=== PATIENT | female | born 1995 | race Caucasian/White ===

== ENCOUNTER 2020-11-15 21:18 | Observation (INO) | payer OTHER ==
[2020-11-15] MEDS ORDERED: Lactated Ringers 1,000 ML IV ONE (22:01)
[2020-11-15] MEDS: Zofran 4 MG/2 ML VIAL IV PRN (22:17)
[2020-11-15] MEDS: MORPHINE SULFATE 4 MG INJ IV PRN (22:20)
[2020-11-15 22:50] LABS: Amphetamine,Urine NEGATIVE (NEGATIVE); Barbiturate,Urine NEGATIVE (NEGATIVE); Benzodiazepine,Urine NEGATIVE (NEGATIVE); Cocaine,Urine NEGATIVE (NEGATIVE); Methadone,Urine NEGATIVE (NEGATIVE); Opiate,Urine NEGATIVE (NEGATIVE); PCP,Urine NEGATIVE (NEGATIVE); THC,Urine NEGATIVE (NEGATIVE)
[2020-11-15 23:24] LABS: Appearance SLIGHTLY CLOUDY (CLEAR); Bilirubin NEGATIVE (NEGATIVE); Blood NEGATIVE Ery/ul (0-5); Epithelial Cells RARE /HPF (FEW); Glucose NEGATIVE (NEGATIVE); Ketones MODERATE (NEGATIVE); Leukocyte Esterase TRACE (NEGATIVE); Mucus SLIGHT /HPF (NEGATIVE); Nitrite NEGATIVE (NEGATIVE); Protein,Urine Dip 30 (Negative); Specific Gravity 1.023 (1.005-1.025); Urobilinogen NEGATIVE mg/dL (0-1)
[2020-11-15] MEDS: Lactated Ringers 1,000 ML IV SCH (23:43)
[2020-11-15] MEDS ORDERED: HYDROCODONE-ACETAMIN 10-325 MG PO PRN (23:46)
[2020-11-16] MEDS: MORPHINE SULFATE 4 MG INJ IV PRN ×2 (02:58→06:44)
[2020-11-16] MEDS: Lactated Ringers 1,000 ML IV SCH ×2 (03:06→10:45)
[2020-11-16 04:28] VITALS: O2SAT 96
[2020-11-16] MEDS: Zofran 4 MG/2 ML VIAL IV PRN (06:51)
[2020-11-16] MEDS ORDERED: MORPHINE SULFATE 4 MG INJ IV ONE ×2 (07:10→09:25)
[2020-11-16 07:46] LABS: Hematocrit 30.9 % (35-47); Hemoglobin 9.7 gm/dl (12.0-16.0); Mean Corpuscular Hemoglobin 27.3 pg (26-32); Mean Corpuscular Hgb Concent. 31.4 g/dl (32-36); Mean Platelet Volume 10.1 fl (7.5-11.0); Platelet Count 305 K/mm3 (150-450); Red Blood Count 3.55 M/mm3 (4.1-5.4); Red Cell Distribution Width 12.8 % (11.5-14.0); White Blood Count 14.4 K/mm3 (4.0-10.5)
[2020-11-16 07:51] LABS: ALBUMIN 3.3 g/dL (3.5-5.0); ALKALINE PHOSPHATASE 179 U/L (38-126); ANION GAP 10.1 MEQ/L (5-15); BLOOD UREA NITROGEN 5 mg/dL (7-17); CHLORIDE 105 mmol/L (98-107); Calcium 9.1 mg/dL (8.4-10.2); Carbon Dioxide 24 mmol/L (22-30); Creatinine 1 0.83 mg/dL (0.52-1.04); EST GLOMERULAR FILTRATION RATE > 60.0 ML/MIN; Glucose 95 mg/dL (74-106); Potassium 4.5 mmol/L (3.5-5.1); SGOT/AST 25 U/L (14-36); SGPT/ALT 11 U/L (0-35); SODIUM 135 mmol/L (137-145); Total Protein 6.2 g/dL (6.3-8.2)
--- NOTE | 2020-11-16 08:36 | XRAY ---
Indication: Right sided pain. 32 weeks . History stones. Two-dimensional renal sonogram performed. Comparison: None Both kidneys normal in reniform shape with normal color perfusion. Right kidney measures 10.7 x 6.0 x 6.1 cm and the left measures 8.4 x 5.2 x 4.7 cm. Right kidney demonstrates mild pelvocaliectasis presumed related to . No solid/cystic renal mass or perinephric fluid. Images of the urinary bladder grossly unremarkable with normal bilateral ureteral jets. Impression: Mild right pelvocaliectasis presumed related to . Remaining renal sonogram negative.
--- NOTE | 2020-11-16 09:05 | XRAY ---
Indication: Right back pain. Two-dimensional OB ultrasound performed. Comparison: None There is a single viable intrauterine in cephalic presentation. heart rate 142 BPM. Visualized spine, stomach, kidneys, and bladder are unremarkable. Posterior fundal placenta without abruption/previa. Cervical length is 4.6 cm. BPD measures 8.07 cm corresponding to 32 weeks 3 days. HC measures 27.89 cm corresponding to 30 weeks 4 days. AC measures 26.88 cm corresponding to 31 weeks 0 days. FL measures 5.89 cm corresponding to 30 weeks 5 days. CADY is 7.5 cm. Impression: Single viable intrauterine with mean gestational age 31 weeks 1 day. Expected date confinement is January 17, 2021.
[2020-11-16 10:26] VITALS: BP 117/59; PULSE 91
[2020-11-16 10:30] LABS: Eosinophil 2 % (0.00-3.0); Lymphocytes 13 % (24-44); Monocyte 3 % (0.0-12.0); Neutrophils 82 % (36.0-66.0); Platelet Estimate NORMAL (NORMAL); Total Cells Counted 100; Toxic Granulation 1+
--- NOTE | 2020-11-16 12:50 | PCM.DCORD ---
- Discharge Disposition: Home, Self-Care Condition: Stable Prescriptions: New Hydrocodone/Acetaminophen [Hydrocodone-Acetamin 10-325 mg] 1 tablet PO QID PRN #16 tablet MDD 4 PRN Reason: Pain Continue Pnv No.103/Folic/Om3s/Fish Oil [ Gummies] 1 each PO DAILY Follow up with: MEHREEN SAMPSON MD [Primary Care Provider] -
== END 2020-11-16 13:15 | disposition home or self-care (01) ==
LOC: OB 21:18 → MED SURG 11-16 00:19
PROVIDERS: ADMIT Family Medicine; ATTEND Family Medicine
DX: O26.893 Other specified pregnancy related conditions, third trimester (principal); Z3A.32 32 weeks gestation of pregnancy; R10.9 Unspecified abdominal pain
CPT/HCPCS: 36415; 76770; 76805; 80053; 80307; 81001; 85025; 87086; G0378; J2270; J2405